=== PATIENT | female | born 1975 | race Caucasian/White ===

== ENCOUNTER 2017-01-11 08:18 | Emergency (ER) | payer SELFPAY ==
[~2017-01-11] VITALS: Wt 54.5 kg
[2017-01-11 08:20] VITALS: Wt 54.5 kg
[2017-01-11] MEDS ORDERED: morphine 4 MG/ML VIAL IV STA (08:55)
[2017-01-11] MEDS ORDERED: ONDANSETRON 4 MG INJ IV STA (08:55)
[2017-01-11] MEDS ORDERED: SOD CHLORIDE 0.9% 1,000 ML IV ONE (09:00)
[2017-01-11 09:41] LABS: URINE BLOOD (Dip) POC 1+ (NEGATIVE)
[2017-01-11] MEDS ORDERED: IOHEXOL 300MG/ML 150 ML BTL ONE (09:56)
[2017-01-11] MEDS ORDERED: SOD CHLORIDE 0.9% 100 ML ONE (09:56)
[2017-01-11] MEDS ORDERED: HYDROCODONE/APAP (5/325) TAB PO ONE (10:00)
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
[2017-01-11 10:55] LABS: BASOPHILS % 0.3 % (0.0-2.0); EOSINOPHILS % 0.4 % (0.0-7.0); HEMOGLOBIN 12.2 g/dl (12.0-16.0); LYMPHOCYTES # 0.9 10^3/ul (0.8-2.9); LYMPHOCYTES % 10.1 % (15.0-51.0); MEAN CORPUSCULAR HEMOGLOBIN 31.9 pg (29.0-33.0); MEAN CORPUSCULAR VOLUME 96.9 fl (82.0-101.0); MEAN PLATELET VOLUME 10.2 fl (7.4-10.4); MONOCYTE # 0.4 10^3/ul (0.3-0.9); MONOCYTES % 4.1 % (0.0-11.0); NEUTROPHILS % 84.3 % (39.0-77.0); PLATELET COUNT 246 10^3/UL (140-415); RED BLOOD COUNT 3.82 10^6/ul (4.20-5.40); RED CELL DISTRIBUTION WIDTH 13.7 % (11.5-14.5); WHITE BLOOD COUNT 9.3 10^3/ul (4.8-10.8)
[2017-01-11 11:14] LABS: ALBUMIN 4.2 g/dl (3.3-4.9); ALBUMIN/GLOBULIN RATIO 1.55; BILIRUBIN,INDIRECT 0.3 mg/dl (0-1.1); BILIRUBIN,TOTAL 0.3 mg/dl (0.2-1.3); CALCIUM 8.8 mg/dl (8.4-10.2); CREATININE 0.69 mg/dl (0.44-1.00); POTASSIUM 3.3 mmol/L (3.5-5.1); TOTAL PROTEIN 6.9 g/dl (6.1-8.1)
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
[2017-01-11] MEDS ORDERED: NAPR-260 PO (11:53)
[2017-01-11] MEDS ORDERED: CYCL-319 PO (11:53)
[2017-01-11] MEDS ORDERED: HYDR-906 PO (11:53)
[2017-01-11 11:54] VITALS: BP 105/60; PULSE 68; RESP 20; TEMP 98.2
[2017-01-11] MEDS ORDERED: NEOM1PAC TP (11:54)
== END 2017-01-11 12:09 | disposition home or self-care (01) ==
LOC: FTE 08:18
DX: S39.93XA Unspecified injury of pelvis, initial encounter (principal); S39.91XA Unspecified injury of abdomen, initial encounter; V47.5XXA Car driver injured in collision with fixed or stationary object in traffic accident, initial encounter
CPT/HCPCS: 71260; 73630; 74177; 80053; 81003; 85025; 99285; J7030; Q9967; J2270; J2405